=== PATIENT | female | born 1980 | race Caucasian/White ===

== ENCOUNTER 2016-09-08 02:57 | Emergency (ER) | payer SELFPAY ==
[~2016-09-08 02:57] MED LIST: Z.0.BCPILL PO
[2016-09-08 03:01] VITALS: BP 97/66; PULSE 81; RESP 16; TEMP 97.8; O2SAT 100
[2016-09-08 03:15] VITALS: BP 88/53; PULSE 73; RESP 16; O2SAT 99
[2016-09-08] MEDS ORDERED: SODIUM CHLOR 0.9% 1000 ML INJ 1,000 ML IV SCH (03:35)
[2016-09-08] MEDS ORDERED: FAMOTIDINE 20 MG/2 ML VIAL IV PUSH ONE (03:45)
[2016-09-08] MEDS ORDERED: ONDANSETRON HCL 4 MG/2 ML VIAL IVP ONE (03:45)
[2016-09-08] MEDS ORDERED: SODIUM CHLORIDE 0.9% FLUSH 5 ML FLUSH IVF PRN (03:45)
[2016-09-08] MEDS ORDERED: SODIUM CHLOR 0.9% 1000 ML INJ 1,000 ML IV ONE (03:45)
--- NOTE | 2016-09-08 03:49 | PD ---
HPI Chief Complaint: Abdominal Pain Time Seen by Provider: 03:29 Travel History International Travel<30 days: No Contact w/Intl Traveler<30days: No Traveled to known affect area: No History of Present Illness HPI Patient is a 36-year-old female who presents to emergency room with complaints of abdominal pain. She reports that she has been having intermittent left lower abdominal pain for the past few weeks. Patient reports that when she has had these symptoms, symptoms last for 20 minutes at a time and resolves on its own. Reports that tonight, her symptoms woke her up from sleep. Patient reports that she woke up and felt nauseous and vomited. Patient reports that this happened multiple times tonight. Denies constipation or diarrhea with symptoms. She reports that she has had increased pain to her left lower quadrant, reports that the last time this happened, she was told that she had fluid around her gallbladder. Patient with no pain to her right upper quadrant. Patient reports that she still feels nauseous while in the emergency room. Patient denies dysuria, urinary urgency or frequency. Patient denies vaginal discharge or bleeding. Patient with no history of ovarian cysts PFSH Past Medical History Medical History: Denies Significant Hx Hx Anticoagulant Therapy: No Cardiovascular Problems: No Chemotherapy: No Cerebrovascular Accident: No Diabetes: No Respiratory: No Tetanus Vaccination: < 5 Years Influenza Vaccination: Yes ?: Not LMP: 08/25/16 : 2 Para: 1 Miscarriage: 1 : 0 Past Surgical History Surgical History: No Previous Surgery Hysterectomy: No Family History Family History: Negative Social History Alcohol Use: Yes (OCCASIONALLY) Tobacco Use: No Substance Use: No Allergies-Medications (Allergen,Severity, Reaction): Coded Allergies: No Known Allergies (Unverified , 04/03/15) Reported Meds & Prescriptions Reported Meds & Active Scripts Active Zofran Odt (Ondansetron Odt) 4 Mg Tab 4 Mg SL Q6HR PRN Review of Systems Gastrointestinal: Positive: Nausea, Vomiting, Abdominal Pain Physical Exam Narrative GENERAL: No acute distress, nontoxic SKIN: Warm and dry. HEAD: Atraumatic. Normocephalic. EYES: Pupils equal and round. No scleral icterus. No injection or drainage. ENT: No nasal bleeding or discharge. Mucous membranes pink and moist. NECK: Trachea midline. No JVD. CARDIOVASCULAR: Regular rate and rhythm. No murmur appreciated. RESPIRATORY: No accessory muscle use. Clear to auscultation. Breath sounds equal bilaterally. GASTROINTESTINAL: Abdomen soft, mildly tender to left lower quadrant with no rebound or guarding on exam MUSCULOSKELETAL: No obvious deformities. No clubbing. No cyanosis. No edema. NEUROLOGICAL: Awake and alert. No obvious cranial nerve deficits. Motor grossly within normal limits. Normal speech. PSYCHIATRIC: Appropriate mood and affect; insight and judgment normal. Data Data Last Documented VS Vital Signs Date Time Temp Pulse Resp B/P Pulse Ox O2 Delivery O2 Flow Rate FiO2 09/08/16 03:15 16 09/08/16 03:15 73 88/53 99 Room Air 09/08/16 03:01 97.8 Orders Complete Blood Count With Diff (09/08/16 03:35) Comprehensive Metabolic Panel (09/08/16 03:35) Urinalysis - C+S If Indicated (09/08/16 03:35) Ct Abd/Pel W/O Iv Contrast (09/08/16 03:35) Iv Access Insert/Monitor (09/08/16 03:35) Ondansetron Inj (Zofran Inj) (09/08/16 03:45) Sodium Chlor 0.9% 1000 Ml Inj (Ns 1000 M (09/08/16 03:35) Sodium Chloride 0.9% Flush (Ns Flush) (09/08/16 03:45) Famotidine Inj (Pepcid Inj) (09/08/16 03:45) Ed Urine Pregnancytest Poc (09/08/16 03:35) Sodium Chlor 0.9% 1000 Ml Inj (Ns 1000 M (09/08/16 03:45) Us Pelvis Comp Ice Seller/Non-Preg (09/08/16 ) Fentanyl Inj (Fentanyl Inj) (09/08/16 04:30) Fentanyl Inj (Fentanyl Inj) (09/08/16 04:28) Labs Laboratory Tests Test 09/08/16 09/08/16 03:40 03:50 White Blood Count 12.7 TH/MM3 Red Blood Count 4.26 MIL/MM3 Hemoglobin 12.1 GM/DL Hematocrit 36.2 % Mean Corpuscular Volume 84.9 FL Mean Corpuscular Hemoglobin 28.3 PG Mean Corpuscular Hemoglobin 33.4 % Concent Red Cell Distribution Width 14.0 % Platelet Count 246 TH/MM3 Mean Platelet Volume 9.6 FL Neutrophils (%) (Auto) 83.7 % Lymphocytes (%) (Auto) 8.8 % Monocytes (%) (Auto) 5.1 % Eosinophils (%) (Auto) 2.1 % Basophils (%) (Auto) 0.3 % Neutrophils # (Auto) 10.6 TH/MM3 Lymphocytes # (Auto) 1.1 TH/MM3 Monocytes # (Auto) 0.7 TH/MM3 Eosinophils # (Auto) 0.3 TH/MM3 Basophils # (Auto) 0.0 TH/MM3 CBC Comment DIFF FINAL Differential Comment Sodium Level 139 MEQ/L Potassium Level 4.1 MEQ/L Chloride Level 108 MEQ/L Carbon Dioxide Level 26.2 MEQ/L Anion Gap 5 MEQ/L Blood Urea Nitrogen 12 MG/DL Creatinine 0.76 MG/DL Estimat Glomerular Filtration 85 ML/MIN Rate Random Glucose 100 MG/DL Calcium Level 8.7 MG/DL Total Bilirubin 0.3 MG/DL Aspartate Amino Transf 11 U/L (AST/SGOT) Alanine Aminotransferase 17 U/L (ALT/SGPT) Alkaline Phosphatase 37 U/L Total Protein 7.3 GM/DL Albumin 3.6 GM/DL Urine Color YELLOW Urine Turbidity CLEAR Urine pH 6.0 Urine Specific [place] 1.030 Urine Protein TRACE mg/dL Urine Glucose (UA) NEG mg/dL Urine Ketones NEG mg/dL Urine Occult Blood TRACE Urine Nitrite NEG Urine Bilirubin NEG Urine Urobilinogen LESS THAN 2.0 MG/DL Urine Leukocyte Esterase SMALL Urine RBC 2 /hpf Urine WBC 8 /hpf Urine Squamous Epithelial 2 /hpf Cells Urine Mucus FEW /lpf Microscopic Urinalysis Comment CULT NOT INDICATED MDM Medical Decision Making Medical Screen Exam Complete: Yes Emergency Medical Condition: Yes Interpretation(s) Vital Signs Date Time Temp Pulse Resp B/P Pulse Ox O2 Delivery O2 Flow Rate FiO2 09/08/16 03:15 16 09/08/16 03:15 73 16 88/53 99 Room Air 09/08/16 03:01 97.8 81 16 97/66 100 Room Air Differential Diagnosis Gastroenteritis, gastritis, colitis, acute cholecystitis, ovarian cyst, ovarian torsion, cervicitis Narrative Course Patient is a 36-year-old female who presents to emergency room with complaints of left lower quadrant abdominal pain. Patient reports that pain has been intermittent for the past 3 weeks, reports severe pain tonight. Patient reports that she has woken up multiple times night with nausea and vomiting, reports that she can't go to sleep with this pain. IV line established the ER, patient given IV fluids as well as antiemetics. She his blood pressure is labile, blood pressure is 80/53, will give patient IV fluids and reevaluate patient. Patient with left lower quadrant pain, CT of abdomen and pelvis ordered as well as pelvic ultrasound to evaluate for possible ovarian torsion versus ovarian cyst Patient agreeable to plan of care. Last Impressions Abdomen/Pelvis CT 09/08/16 0335 Signed Impressions: Service Date/Time: Thursday, September 08, 2016 03:51 - CONCLUSION: 1. Cholelithiasis. 2. No acute inflammatory process. Gregory Rea MD Diagnosis Primary Impression: Abdominal pain Qualified Code: R10.32 - Left lower quadrant pain Additional Impressions: Nausea & vomiting Qualified Code: R11.2 - Nausea and vomiting, intractability of vomiting not specified, unspecified vomiting type Cholelithiasis Qualified Code: K80.80 - Biliary calculus of other site without obstruction Patient Instructions: General Instructions, Narcotic given in the ED Additional Instructions: *Please provide patient with her lab work as well as her ultrasound and CAT scan report at discharge.* Please follow-up with your primary care doctor Please follow-up with felt hat pouncing operator hand Return to ER as needed Please return to the emergency room as soon as possible if you have any return of symptoms. Please drink plenty of fluids Med/Other Pt SpecificInfo: Prescription(s) given Scripts Ondansetron Odt (Zofran Odt)4 Mg Tab4 Mg SL Q6HR PRN (Nausea/Vomiting) #30 TAB Ref 0 Prov:Stephanie South DO 09/08/16 Disposition: 01 DISCHARGE HOME Condition: Stable Stephanie South DO Sep 08, 2016 03:49 Stephanie South DO Sep 08, 2016 03:49
[2016-09-08 04:02] LABS: AUTOMATED NEUTROPHIL # 10.6 TH/MM3 (1.8-7.7); BASOPHIL % 0.3 % (0.0-2.0); EOSINOPHIL # 0.3 TH/MM3 (0-0.4); EOSINOPHIL % 2.1 % (0.0-4.0); HEMATOCRIT 36.2 % (35.0-46.0); HEMO FLAGS DIFF FINAL; LYMPH % 8.8 % (9.0-44.0); LYMPHOCYTE # 1.1 TH/MM3 (1.0-4.8); MEAN CELL VOLUME 84.9 FL (80.0-100.0); MEAN CORPUSCULAR HEMOGLOBIN 28.3 PG (27.0-34.0); MEAN CORPUSCULAR HGB CONC 33.4 % (32.0-36.0); MONO % 5.1 % (0.0-8.0); NEUT % 83.7 % (16.0-70.0); PLATELET COUNT 246 TH/MM3 (150-450); RED BLOOD COUNT 4.26 MIL/MM3 (4.00-5.30); WHITE BLOOD COUNT 12.7 TH/MM3 (4.0-11.0)
[2016-09-08 04:05] LABS: BLOOD, URINE TRACE (NEG); COMMENT (UR) CULT NOT INDICATED; CULTURE IF INDICATED CULT NOT INDICATED; GLUCOSE,URINE NEG (NEG); KETONE, URINE NEG (NEG); MUCUS URINE FEW /lpf (OCC); NITRITE,URINE NEG (NEG); SQUAMOUS EPITHELIAL CELL URINE 2 /hpf (0-5); URINE COLOR YELLOW (YELLW/STRAW)
[2016-09-08 04:24] LABS: ALT (GPT) 17 U/L (10-53); ANION GAP 5 MEQ/L (5-15); AST (GOT) 11 U/L (15-37); BICARBONATE 26.2 MEQ/L (21.0-32.0); BLOOD UREA NITROGEN 12 MG/DL (7-18); CHLORIDE 108 MEQ/L (98-107); GLOMERULAR FILTRATION RATE 85 ML/MIN (>89); POTASSIUM 4.1 MEQ/L (3.5-5.1); SODIUM (NA) 139 MEQ/L (136-145)
[2016-09-08 04:27] LABS: ALKALINE PHOSPHATASE 37 U/L (45-117); TOTAL BILIRUBIN ADULT 0.3 MG/DL (0.2-1.0)
[2016-09-08] MEDS ORDERED: fentaNYL CITRATE 250 MCG/5 ML AMP IV PUSH ONE (04:30)
--- NOTE | 2016-09-08 04:44 | RADRPT ---
EXAM DATE/TIME: 09/08/2016 03:51 [facility] COMPARISON: CT ABDOMEN & PELVIS W CONTRAST, April 03, 2015, 10:30. INDICATIONS : Left lower quadrant pain. ORAL CONTRAST: No oral contrast ingested. RADIATION DOSE: 13.28 CTDIvol (mGy) MEDICAL HISTORY : None SURGICAL HISTORY : None. ENCOUNTER: Initial ACUITY: 1 day PAIN SCALE: 8/10 LOCATION: Bilateral abdomen. TECHNIQUE: Volumetric scanning of the abdomen and pelvis was performed. Using automated exposure control and ad justment of the mA and/or kV according to patient size, radiation dose was kept as low as reasonably achievable to obtain optimal diagnostic quality images. FINDINGS: LOWER LUNGS: The visualized lower lungs are clear. LIVER: Homogeneous density without lesion. There is no dilation of the biliary tree. There are calcified ga llstones. SPLEEN: Normal size without lesion. PANCREAS: Within normal limits. KIDNEYS: Normal in size and shape. There is no mass, stone, or hydronephrosis. ADRENAL GLANDS: Within normal limits. VASCULAR: There is no aortic aneurysm. BOWEL/MESENTERY: The stomach, small bowel, and colon demonstrate no acute abnormality. There is no free intraperitone al air or fluid. ABDOMINAL WALL: Within normal limits. RETROPERITONEUM: There is no lymphadenopathy. BLADDER: No wall thickening or mass. REPRODUCTIVE: Within normal limits. INGUINAL: There is no lymphadenopathy or hernia. MUSCULOSKELETAL: Within normal limits for patient age. CONCLUSION: 1. Cholelithiasis. 2. No acute inflammatory process. Gregory Rea MD on September 08, 2016 at 4:40 Board Certified Radiologist. This report was verified electronically.
[2016-09-08 06:00] VITALS: BP 98/57; PULSE 82; RESP 16; O2SAT 100
--- NOTE | 2016-09-08 06:02 | RADRPT ---
EXAM DATE/TIME: 09/08/2016 05:38 [facility] COMPARISON: No previous studies available for comparison. INDICATIONS : Left pelvic pain. MEDICAL HISTORY : Left pelvic pain. SURGICAL HISTORY : None. ENCOUNTER: Initial ACUITY: 1 day PAIN SCORE: 6/10 LOCATION: Bilateral pelvis MEASUREMENTS: UTERUS: 11.1 x 4.5 x 6.6 cm ENDOMETRIAL STRIPE: 3 mm RIGHT OVARY: 4.6 x 2.4 x 2.0 cm LEFT OVARY: 3.3 x 1.7 x 2.3 cm FINDINGS: UTERUS: The myometrium has homogeneous echotexture without mass. RIGHT OVARY: Ovary contains no mass or significant cystic lesion. Normal flow. LEFT OVARY: Ovary contains no mass or significant cystic lesion. Dominant follicle measures 9 x 10 x 9 mm. Marcelina l flow. MISCELLANEOUS: No free fluid. CONCLUSION: Dominant follicle left ovary measures 1 cm otherwise unremarkable pelvic sonogram. Gregory Rea MD on September 08, 2016 at 6:00 Board Certified Radiologist. This report was verified electronically.
[2016-09-08] MEDS ORDERED: ZOFR4TAB3 SL (06:10)
[2016-09-08] MEDS ORDERED: ONDANSETRON ODT 4 MG TAB PO ONE (07:00)
[2016-09-08] MEDS ORDERED: MECL-62 PO ×2 (21:06→21:08)
== END 2016-09-08 07:01 | disposition home or self-care (01) ==
LOC: NEPC 02:57
DX: K80.20 Calculus of gallbladder without cholecystitis without obstruction (principal); R11.2 Nausea with vomiting, unspecified
CPT/HCPCS: 74176; 76856; 80053; 81001; 84703; 85025; 96361; 96374; 96375; 99284; J2405; J3010; J7030

== ENCOUNTER 2016-09-08 19:13 | Emergency (ER) | payer SELFPAY ==
[~2016-09-08] VITALS: Ht 157.5 cm; Wt 51.0 kg
[~2016-09-08 19:13] MED LIST changes: +ZOFR4TAB3 SL
[2016-09-08 19:15] VITALS: BP 98/59; PULSE 88; RESP 20; TEMP 98.2; O2SAT 100
[2016-09-08] MEDS ORDERED: SODIUM CHLOR 0.9% 1000 ML INJ 1,000 ML IV SCH (20:28)
[2016-09-08] MEDS ORDERED: DIAZEPAM 5 MG TAB PO ONE (20:30)
[2016-09-08] MEDS ORDERED: MECLIZINE HCL 25 MG TAB PO ONE (20:30)
--- NOTE | 2016-09-08 20:37 | PD ---
HPI Chief Complaint: Abdominal Pain Time Seen by Provider: 20:36 Travel History International Travel<30 days: No Contact w/Intl Traveler<30days: No Traveled to known affect area: No History of Present Illness HPI 36-year-old female presents to the emergency department for evaluation of dizziness, weakness and vomiting. Patient states last night she began to have left sided abdominal cramping and nonbloody nonbilious vomiting, states after 3 hours of these symptoms she came to our ED for evaluation. States she had lab work, CT and ultrasound imaging done last night and was discharged with a prescription for Zofran. States when she got home early this morning from our ED she went to sleep for several hours and woke up around noon. She did not get her Zofran prescription filled. States she went "out to lunch" with her boyfriend and drank a bloody jarred but did not eat any food. States she went back to sleep and woke up this evening with dizziness, weakness and vomiting and diarrhea. States she has dizziness and vomiting that is aggravated with changing from a laying to sitting/standing position. Patient denies any fever, chills, chest pain, abdominal pain, cough or cold symptoms, dysuria, vaginal discharge. Denies . No prior abdominal surgeries. No other complaints. PFSH Past Medical History Medical History: Denies Significant Hx Hx Anticoagulant Therapy: No Cardiovascular Problems: No Chemotherapy: No Cerebrovascular Accident: No Diabetes: No Respiratory: No ?: Not : 2 Para: 1 Miscarriage: 1 : 0 Past Surgical History Surgical History: No Previous Surgery Hysterectomy: No Social History Alcohol Use: Yes (OCCASIONALLY) Tobacco Use: No Substance Use: No Allergies-Medications (Allergen,Severity, Reaction): Coded Allergies: No Known Allergies (Unverified , 09/08/16) Reported Meds & Prescriptions Reported Meds & Active Scripts Active Zofran Odt (Ondansetron Odt) 4 Mg Tab 4 Mg SL Q6HR PRN Review of Systems Except as stated in HPI: all other systems reviewed are Neg Physical Exam Narrative GENERAL: Well-nourished and well-developed female patient in no acute distress. SKIN: Warm and dry. HEAD: Normocephalic and atraumatic. EYES: No injection, drainage, or hyphema noted. PERRLA. EOMI. ENT: No nasal drainage noted. Oropharynx is clear. NECK: Supple and the trachea is midline. CARDIOVASCULAR: Regular rate and rhythm. RESPIRATORY: Breath sounds are equal bilaterally with no accessory muscle use, wheezing, rhonchi, or crackles. GASTROINTESTINAL: Abdomen is soft, non-tender, and nondistended. MUSCULOSKELETAL: No obvious deformities, swelling, cyanosis, or ecchymosis is present throughout the upper and lower extremities. Patient has full range of motion without any signs of neurovascular compromise. NEUROLOGICAL: Awake, alert, and oriented. Normal speech and gait. Cranial nerves are grossly intact. Data Data Last Documented VS Vital Signs Date Time Temp Pulse Resp B/P Pulse Ox O2 Delivery O2 Flow Rate FiO2 09/08/16 19:15 98.2 88 20 98/59 100 Room Air Orders Sodium Chlor 0.9% 1000 Ml Inj (Ns 1000 M (09/08/16 20:28) Diazepam (Valium) (09/08/16 20:30) Meclizine (Antivert) (09/08/16 20:30) MDM Medical Decision Making Medical Screen Exam Complete: Yes Emergency Medical Condition: Yes Differential Diagnosis Vertigo versus dehydration versus anxiety versus viral illness Narrative Course 36-year-old female presents to the emergency department for evaluation of weakness, dizziness and vomiting. Patient is afebrile, vital signs are stable. Physical examination is essentially unremarkable except patient complains of dizziness with sitting up. No focal neurologic deficits. A review of the EMR shows that the patient had lab work, abdominal/pelvic CT and a pelvic ultrasound last night. Her labs showed only a minimally elevated WBC of 12.7. Otherwise everything was unremarkable. I suspect that the patient has a viral illness causing her vomiting and diarrhea and is having some dizziness/ lightheadedness secondary to either vertigo or mild dehydration. Also, having an alcoholic beverage on an empty stomach likely worsened her symptoms. Given that she had lab work less than 24 hours ago I don't see an indication to repeat labs. Patient is given a liter of fluids IV, meclizine 25 mg orally and valium 5 mg orally. She'll be reassessed after these medications. Patient reassessed after fluids and medication and reports feeling much better. We'll give her prescription for meclizine. She has the prescription for Zofran at home. Discussed supportive care. Advised follow-up with her PCP. Patient verbalizes understanding and agreement with treatment plan. Diagnosis Primary Impression: Dizziness Additional Impression: Nausea & vomiting Qualified Code: R11.2 - Non-intractable vomiting with nausea, unspecified vomiting type Referrals: Primary Care Physician Patient Instructions: General Instructions Additional Instructions: Drink plenty of water. Eat bland foods. Follow-up with your Primary Care Physician. Return to the ED for any acute worsening of symptoms. Med/Other Pt SpecificInfo: No Change to Meds Scripts Meclizine 25 Mg Tab25 Mg PO TID PRN (VERTIGO) 5 Days Ref 0 Prov:Mark Melara MD 09/08/16 Disposition: 01 DISCHARGE HOME Condition: Stable Kira Barroso Sep 08, 2016 20:37
[2016-09-08] MEDS ORDERED: MECL-62 PO ×2 (21:06→21:08)
== END 2016-09-08 21:37 | disposition home or self-care (01) ==
LOC: NETRI 19:13
DX: R42 Dizziness and giddiness (principal); R11.2 Nausea with vomiting, unspecified
CPT/HCPCS: 99284; J7030

== ENCOUNTER 2017-01-23 05:18 | Emergency (ER) | payer SELFPAY ==
[~2017-01-23] VITALS: Ht 157.5 cm; Wt 51.0 kg
[~2017-01-23 05:18] MED LIST changes: +MECL-62 PO; -Z.0.BCPILL PO
[2017-01-23 05:19] VITALS: BP 100/64; PULSE 67; RESP 18; TEMP 97.8; O2SAT 100
--- NOTE | 2017-01-23 05:38 | PD ---
HPI Chief Complaint: Abdominal Pain Time Seen by Provider: 05:38 Travel History International Travel<30 days: No Contact w/Intl Traveler<30days: No Traveled to known affect area: No History of Present Illness HPI 36-year-old female came to the emergency room with history of epigastric and right upper quadrant pain sudden onset since last night. No history of vomiting or diarrhea. She is nauseous however. Patient has been diagnosed with cholelithiasis in the past. Patient says she does not have insurance and hence never went to see his surgeon as outpatient. Pain radiating from the epigastric region to RUQ. No aggravating or relieving factors. PFSH Past Medical History Narrative Medical List of her past medical, surgical, social and family history was reviewed from the nursing note. Hx Anticoagulant Therapy: No Cardiovascular Problems: No Chemotherapy: No Cerebrovascular Accident: No Diabetes: No Diminished Hearing: No Respiratory: No Immunizations Current: No Tetanus Vaccination: < 5 Years Influenza Vaccination: No ?: Not LMP: 12/31/2016 : 2 Para: 1 Miscarriage: 1 : 0 Past Surgical History Surgical History: No Previous Surgery Hysterectomy: No Social History Alcohol Use: Yes (OCCASIONALLY) Tobacco Use: No Substance Use: No Allergies-Medications (Allergen,Severity, Reaction): Coded Allergies: No Known Allergies (Unverified , 01/23/17) Comments No known drug allergies. Reported Meds & Prescriptions Reported Meds & Active Scripts Active Lortab (Hydrocodone-Acetaminophen) 5-325 Mg Tab 1 Tab PO Q6H PRN Zofran Odt (Ondansetron Odt) 4 Mg Tab 4 Mg SL Q6HR PRN Narrative Medication List of her home medications reviewed from the nursing note. Review of Systems Except as stated in HPI: all other systems reviewed are Neg Physical Exam Narrative GENERAL: Awake, alert, moderate distress SKIN: Focused skin assessment warm/dry. HEAD: Atraumatic. Normocephalic. EYES: Pupils equal and round. No scleral icterus. No injection or drainage. ENT: No nasal bleeding or discharge. Mucous membranes pink and moist. NECK: Trachea midline. No JVD. CARDIOVASCULAR: Regular rate and rhythm. No murmur appreciated. RESPIRATORY: No accessory muscle use. Clear to auscultation. Breath sounds equal bilaterally. GASTROINTESTINAL: Abdomen soft, epigastric and right upper quadrant tenderness, nondistended. Hepatic and splenic margins not palpable. MUSCULOSKELETAL: No obvious deformities. No clubbing. No cyanosis. No edema. NEUROLOGICAL: Awake and alert. No obvious cranial nerve deficits. Motor grossly within normal limits. Normal speech. PSYCHIATRIC: Appropriate mood and affect; insight and judgment normal. Data Data Last Documented VS Vital Signs Date Time Temp Pulse Resp B/P Pulse Ox O2 Delivery O2 Flow Rate FiO2 01/23/17 10:11 72 15 110/60 99 01/23/17 07:30 98.2 Room Air Orders Complete Blood Count With Diff (01/23/17 05:48) Comprehensive Metabolic Panel (01/23/17 05:48) Lipase (01/23/17 05:48) Urinalysis - C+S If Indicated (01/23/17 05:48) Us Abdomen Gallbladder (01/23/17 ) Iv Access Insert/Monitor (01/23/17 05:48) Ecg Monitoring (01/23/17 05:48) Oximetry (01/23/17 05:48) Morphine Inj (Morphine Inj) (01/23/17 06:00) Ondansetron Inj (Zofran Inj) (01/23/17 06:00) Sodium Chlor 0.9% 1000 Ml Inj (Ns 1000 M (01/23/17 05:48) Sodium Chloride 0.9% Flush (Ns Flush) (01/23/17 06:00) Ed Urine Pregnancytest Poc (01/23/17 05:48) Mandatory Outpatient Referral (01/23/17 09:50) Labs Laboratory Tests Test 01/23/17 01/23/17 06:10 07:10 White Blood Count 7.0 TH/MM3 Red Blood Count 4.31 MIL/MM3 Hemoglobin 12.1 GM/DL Hematocrit 37.1 % Mean Corpuscular Volume 86.1 FL Mean Corpuscular Hemoglobin 28.0 PG Mean Corpuscular Hemoglobin 32.6 % Concent Red Cell Distribution Width 14.5 % Platelet Count 241 TH/MM3 Mean Platelet Volume 10.1 FL Neutrophils (%) (Auto) 53.6 % Lymphocytes (%) (Auto) 31.2 % Monocytes (%) (Auto) 9.8 % Eosinophils (%) (Auto) 4.6 % Basophils (%) (Auto) 0.8 % Neutrophils # (Auto) 3.7 TH/MM3 Lymphocytes # (Auto) 2.2 TH/MM3 Monocytes # (Auto) 0.7 TH/MM3 Eosinophils # (Auto) 0.3 TH/MM3 Basophils # (Auto) 0.1 TH/MM3 CBC Comment DIFF FINAL Differential Comment Sodium Level 142 MEQ/L Potassium Level 3.9 MEQ/L Chloride Level 108 MEQ/L Carbon Dioxide Level 26.3 MEQ/L Anion Gap 8 MEQ/L Blood Urea Nitrogen 8 MG/DL Creatinine 0.69 MG/DL Estimat Glomerular Filtration 95 ML/MIN Rate Random Glucose 92 MG/DL Calcium Level 8.8 MG/DL Total Bilirubin 0.2 MG/DL Aspartate Amino Transf 13 U/L (AST/SGOT) Alanine Aminotransferase 16 U/L (ALT/SGPT) Alkaline Phosphatase 38 U/L Total Protein 7.2 GM/DL Albumin 3.6 GM/DL Lipase 213 U/L Urine Color YELLOW Urine Turbidity CLEAR Urine pH 5.5 Urine Specific [place] 1.020 Urine Protein NEG mg/dL Urine Glucose (UA) NEG mg/dL Urine Ketones NEG mg/dL Urine Occult Blood SMALL Urine Nitrite NEG Urine Bilirubin NEG Urine Urobilinogen LESS THAN 2.0 MG/DL Urine Leukocyte Esterase NEG Urine RBC 1 /hpf Urine WBC 1 /hpf Urine Squamous Epithelial 1 /hpf Cells Urine Mucus FEW /lpf Microscopic Urinalysis Comment CULT NOT INDICATED MDM Medical Decision Making Medical Screen Exam Complete: Yes Emergency Medical Condition: Yes Medical Record Reviewed: Yes Differential Diagnosis Acute cholecystitis, acute pancreatitis Narrative Course 6:54 AM given the fact that patient has had previous cholelithiasis this sounds like a biliary colic. CBC is within normal limit. Awaiting for the chemistry and ultrasound. Patient was medicated for pain in case has been signed over to the oncoming ER physician. Procedures EKG Prior to Arrival: No Scripts Hydrocodone-Acetaminophen (Lortab)5-325 Mg Tab1 Tab PO Q6H PRN (PAIN) #20 TAB Ref 0 Prov:Rg Casey MD 01/23/17 Ondansetron Odt (Zofran Odt)4 Mg Tab4 Mg SL Q6HR PRN (Nausea/Vomiting) #30 TAB Ref 0 Prov:Rg Casey MD 01/23/17 Yonis Sher MD January 23, 2017 05:38
[2017-01-23] MEDS ORDERED: SODIUM CHLOR 0.9% 1000 ML INJ 1,000 ML IV SCH (05:48)
[2017-01-23] MEDS ORDERED: ONDANSETRON HCL 4 MG/2 ML VIAL IVP ONE (06:00)
[2017-01-23] MEDS ORDERED: SODIUM CHLORIDE 0.9% FLUSH 10 ML FLUSH IV FLUSH PRN (06:00)
[2017-01-23] MEDS ORDERED: MORPHINE SULFATE 4 MG/ML INJ IV PUSH ONE (06:00)
[2017-01-23 06:02] VITALS: O2SAT 97
[2017-01-23 06:23] LABS: AUTOMATED NEUTROPHIL # 3.7 TH/MM3 (1.8-7.7); BASOPHIL # 0.1 TH/MM3 (0-0.2); BASOPHIL % 0.8 % (0.0-2.0); EOSINOPHIL # 0.3 TH/MM3 (0-0.4); EOSINOPHIL % 4.6 % (0.0-4.0); HEMATOCRIT 37.1 % (35.0-46.0); HEMO FLAGS DIFF FINAL; LYMPH % 31.2 % (9.0-44.0); LYMPHOCYTE # 2.2 TH/MM3 (1.0-4.8); MEAN CELL VOLUME 86.1 FL (80.0-100.0); MEAN CORPUSCULAR HGB CONC 32.6 % (32.0-36.0); MONO % 9.8 % (0.0-8.0); NEUT % 53.6 % (16.0-70.0); PLATELET COUNT 241 TH/MM3 (150-450); RED BLOOD COUNT 4.31 MIL/MM3 (4.00-5.30); RED CELL DISTRIBUTION WIDTH 14.5 % (11.6-17.2)
[2017-01-23 07:01] LABS: ALT (GPT) 16 U/L (10-53); ANION GAP 8 MEQ/L (5-15); AST (GOT) 13 U/L (15-37); BICARBONATE 26.3 MEQ/L (21.0-32.0); BLOOD UREA NITROGEN 8 MG/DL (7-18); CHLORIDE 108 MEQ/L (98-107); GLOMERULAR FILTRATION RATE 95 ML/MIN (>89); POTASSIUM 3.9 MEQ/L (3.5-5.1); SODIUM (NA) 142 MEQ/L (136-145)
[2017-01-23 07:03] LABS: ALKALINE PHOSPHATASE 38 U/L (45-117); TOTAL BILIRUBIN ADULT 0.2 MG/DL (0.2-1.0)
[2017-01-23 07:10] VITALS: RESP 16; O2SAT 100
--- NOTE | 2017-01-23 07:19 | PD ---
Physical Exam Date Seen by Provider: January 23, 2017 Time Seen by Provider: 07:00 Narrative Patient signed out to me by Dr. Sher. Working diagnosis is cholecystitis. The patient has had 2 previous episodes of symptomatic gallbladder disease. The patient is afebrile. White count is normal. Liver enzymes and alkaline phosphatase are normal. We are awaiting ultrasound of the gallbladder. Data Data Last Documented VS Vital Signs Date Time Temp Pulse Resp B/P Pulse Ox O2 Delivery O2 Flow Rate FiO2 01/23/17 07:30 98.2 68 16 98/67 100 Room Air Orders Complete Blood Count With Diff (01/23/17 05:48) Comprehensive Metabolic Panel (01/23/17 05:48) Lipase (01/23/17 05:48) Urinalysis - C+S If Indicated (01/23/17 05:48) Us Abdomen Gallbladder (01/23/17 ) Iv Access Insert/Monitor (01/23/17 05:48) Ecg Monitoring (01/23/17 05:48) Oximetry (01/23/17 05:48) Morphine Inj (Morphine Inj) (01/23/17 06:00) Ondansetron Inj (Zofran Inj) (01/23/17 06:00) Sodium Chlor 0.9% 1000 Ml Inj (Ns 1000 M (01/23/17 05:48) Sodium Chloride 0.9% Flush (Ns Flush) (01/23/17 06:00) Ed Urine Pregnancytest Poc (01/23/17 05:48) Labs Laboratory Tests Test 01/23/17 01/23/17 06:10 07:10 White Blood Count 7.0 TH/MM3 Red Blood Count 4.31 MIL/MM3 Hemoglobin 12.1 GM/DL Hematocrit 37.1 % Mean Corpuscular Volume 86.1 FL Mean Corpuscular Hemoglobin 28.0 PG Mean Corpuscular Hemoglobin 32.6 % Concent Red Cell Distribution Width 14.5 % Platelet Count 241 TH/MM3 Mean Platelet Volume 10.1 FL Neutrophils (%) (Auto) 53.6 % Lymphocytes (%) (Auto) 31.2 % Monocytes (%) (Auto) 9.8 % Eosinophils (%) (Auto) 4.6 % Basophils (%) (Auto) 0.8 % Neutrophils # (Auto) 3.7 TH/MM3 Lymphocytes # (Auto) 2.2 TH/MM3 Monocytes # (Auto) 0.7 TH/MM3 Eosinophils # (Auto) 0.3 TH/MM3 Basophils # (Auto) 0.1 TH/MM3 CBC Comment DIFF FINAL Differential Comment Sodium Level 142 MEQ/L Potassium Level 3.9 MEQ/L Chloride Level 108 MEQ/L Carbon Dioxide Level 26.3 MEQ/L Anion Gap 8 MEQ/L Blood Urea Nitrogen 8 MG/DL Creatinine 0.69 MG/DL Estimat Glomerular Filtration 95 ML/MIN Rate Random Glucose 92 MG/DL Calcium Level 8.8 MG/DL Total Bilirubin 0.2 MG/DL Aspartate Amino Transf 13 U/L (AST/SGOT) Alanine Aminotransferase 16 U/L (ALT/SGPT) Alkaline Phosphatase 38 U/L Total Protein 7.2 GM/DL Albumin 3.6 GM/DL Lipase 213 U/L Urine Color YELLOW Urine Turbidity CLEAR Urine pH 5.5 Urine Specific [place] 1.020 Urine Protein NEG mg/dL Urine Glucose (UA) NEG mg/dL Urine Ketones NEG mg/dL Urine Occult Blood SMALL Urine Nitrite NEG Urine Bilirubin NEG Urine Urobilinogen LESS THAN 2.0 MG/DL Urine Leukocyte Esterase NEG Urine RBC 1 /hpf Urine WBC 1 /hpf Urine Squamous Epithelial 1 /hpf Cells Urine Mucus FEW /lpf Microscopic Urinalysis Comment CULT NOT INDICATED MDM Medical Record Reviewed: Yes Supervised Visit with IVETTE: No Interpretation(s) Last Impressions Gall Bladder Ultrasound 01/23/17 0000 Signed Impressions: Service Date/Time: Monday, January 23, 2017 08:34 - CONCLUSION: 1. Numerous gallstones without biliary ductal dilatation. No free fluid. Tony Peña MD Differential Diagnosis Acute cholecystitis versus hepatitis versus hepatitis versus gallbladder disease. Narrative Course 36-year-old female with gallbladder disease and gallstones, who presents with right upper quadrant pain. Patient has no evidence of cholecystitis at this time. I informed her that I will place a mandatory consult so that she can have this scheduled to be taken out. She'll be given up her prescription for Lortab in case she has not her tach. She is instructed to return if she does any worsening pain, intractable nausea vomiting, or any other reason the concerns her. Diagnosis Primary Impression: Cholelithiasis Additional Instruction: Avoid fatty foods. He will receive a call from a nurse for a scheduled appointment with Gen. surgery. Return if you have worsening pain, intractable nausea vomiting, or any other reason its concerning. Med/Other Pt SpecificInfo: Prescription(s) given Scripts Hydrocodone-Acetaminophen (Lortab)5-325 Mg Tab1 Tab PO Q6H PRN (PAIN) #20 TAB Ref 0 Prov:Rg Casey MD 01/23/17 Ondansetron Odt (Zofran Odt)4 Mg Tab4 Mg SL Q6HR PRN (Nausea/Vomiting) #30 TAB Ref 0 Prov:Rg Casey MD 01/23/17 Disposition: 01 DISCHARGE HOME Condition: Stable Rg Casey MD January 23, 2017 07:19
[2017-01-23 07:30] VITALS: BP 98/67; PULSE 68; RESP 16; TEMP 98.2; O2SAT 100
[2017-01-23 07:43] LABS: BLOOD, URINE SMALL (NEG); COMMENT (UR) CULT NOT INDICATED; CULTURE IF INDICATED CULT NOT INDICATED; GLUCOSE,URINE NEG (NEG); KETONE, URINE NEG (NEG); MUCUS URINE FEW /lpf (OCC); NITRITE,URINE NEG (NEG); PH, URINE 5.5 (5.0-8.5); SQUAMOUS EPITHELIAL CELL URINE 1 /hpf (0-5); URINE COLOR YELLOW (YELLW/STRAW)
--- NOTE | 2017-01-23 09:41 | RADRPT ---
EXAM DATE/TIME: 01/23/2017 08:34 [facility] COMPARISON: No previous studies available for comparison. INDICATIONS : Right upper quadrant pain. MEDICAL HISTORY : Abdominal pain. SURGICAL HISTORY : None. ENCOUNTER: Initial ACUITY: 1 day PAIN SCORE: 0/10 LOCATION: Bilateral upper quadrant MEASUREMENTS: LIVER: 14.6 cm length COMMON DUCT: 5 mm RIGHT KIDNEY: 11.1 x 5.7 x 4.1 cm FINDINGS: Multiple gallstones present in the gallbladder. No biliary ductal dilatation. Gallbladder wall measur es about 3 mm at the upper edge of normal. No significant abnormality in the liver, right kidney. No free fluid. Portal venous flow has normal f low direction. Right kidney unremarkable. CONCLUSION: 1. Numerous gallstones without biliary ductal dilatation. No free fluid. Tony Peña MD on January 23, 2017 at 9:35 Board Certified Radiologist. This report was verified electronically.
[2017-01-23] MEDS ORDERED: ZOFR4TAB3 SL (09:50)
[2017-01-23] MEDS ORDERED: HYDR-3533 PO (09:50)
[2017-01-23 10:11] VITALS: BP 110/60
== END 2017-01-23 10:20 | disposition home or self-care (01) ==
LOC: NEPC 05:18
DX: K80.20 Calculus of gallbladder without cholecystitis without obstruction (principal)
CPT/HCPCS: 76705; 80053; 81001; 83690; 84703; 85025; 96361; 96374; 96375; 99285; J2270; J2405; J7030

== ENCOUNTER 2017-04-10 02:36 | Emergency (ER) | payer SELFPAY ==
[~2017-04-10 02:36] MED LIST changes: +HYDR-3533 PO; -MECL-62 PO
[2017-04-10 02:39] VITALS: BP 108/57; PULSE 64; RESP 20; TEMP 98.3; O2SAT 100
[2017-04-10] MEDS ORDERED: SODIUM CHLOR 0.9% 1000 ML INJ 1,000 ML IV SCH (03:01)
[2017-04-10] MEDS ORDERED: ONDANSETRON HCL 4 MG/2 ML VIAL IVP ONE (03:15)
[2017-04-10] MEDS ORDERED: HYDROmorphone HCL PF 1 MG/ML VIAL IVS ONE (03:15)
[2017-04-10] MEDS ORDERED: SODIUM CHLORIDE 0.9% FLUSH 10 ML FLUSH IV FLUSH PRN (03:15)
[2017-04-10 03:20] LABS: AUTOMATED NEUTROPHIL # 4.3 TH/MM3 (1.8-7.7); BASOPHIL # 0.1 TH/MM3 (0-0.2); BASOPHIL % 0.8 % (0.0-2.0); EOSINOPHIL # 0.4 TH/MM3 (0-0.4); EOSINOPHIL % 4.9 % (0.0-4.0); HEMATOCRIT 34.7 % (35.0-46.0); HEMO FLAGS DIFF FINAL; LYMPH % 38.3 % (9.0-44.0); LYMPHOCYTE # 3.5 TH/MM3 (1.0-4.8); MEAN CELL VOLUME 86.9 FL (80.0-100.0); MEAN CORPUSCULAR HEMOGLOBIN 29.6 PG (27.0-34.0); MEAN CORPUSCULAR HGB CONC 34.1 % (32.0-36.0); MONO % 8.8 % (0.0-8.0); NEUT % 47.2 % (16.0-70.0); PLATELET COUNT 265 TH/MM3 (150-450); RED BLOOD COUNT 3.99 MIL/MM3 (4.00-5.30); RED CELL DISTRIBUTION WIDTH 13.9 % (11.6-17.2); WHITE BLOOD COUNT 9.1 TH/MM3 (4.0-11.0)
[2017-04-10 03:27] LABS: APTT (PATIENT) 23.7 SEC (24.3-30.1); INTERNATIONAL NORMALIZED RATIO 0.9 RATIO; PROTHROMBIN TIME - PATIENT 10.2 SEC (9.8-11.6)
[2017-04-10 03:40] LABS: BICARBONATE 24.5 MEQ/L (21.0-32.0); POTASSIUM 3.7 MEQ/L (3.5-5.1)
--- NOTE | 2017-04-10 03:51 | RADRPT ---
EXAM DATE/TIME: 04/10/2017 03:18 [facility] COMPARISON: US ABDOMEN - GALLBLADDER, January 23, 2017, 8:34. CT ABDOMEN & PELVIS W/O CONTRAST, September 08, 2016, 3: 51. INDICATIONS : Right upper quadrant pain. MEDICAL HISTORY : Gallstones. SURGICAL HISTORY : None. ENCOUNTER: Subsequent ACUITY: 3 months PAIN SCORE: 3/10 LOCATION: Right upper quadrant MEASUREMENTS: LIVER: 18.5 cm length COMMON DUCT: 5 mm RIGHT KIDNEY: 10.8 x 3.9 x 4.0 cm FINDINGS: LIVER: Normal echotexture without focal lesion or ductal dilatation. There is normal flow velocity and direc tion in the main portal vein. COMMON DUCT: No intraluminal mass or stone visualized. GALLBLADDER: Small sludge seen in the gallbladder. There is a mobile 8 x 15 mm stone. There is an 11 mm non-mobile stone at the neck findings appear similar to the main comparison. No gallbladder wall thickening or pericholecystic fluid. Negative sonographic Edmonds's sign. PANCREAS: The visualized portions are within normal limits. RIGHT KIDNEY: No evidence of hydronephrosis, stone, or mass. CONCLUSION: 1. Liver is mildly enlarged, new. 2. Sludge and stones in the gallbladder. Non-mobile stone at the gallbladder neck but no evidence of cholecystitis. Angelito Szymanski MD on April 10, 2017 at 3:45 Board Certified Radiologist. This report was verified electronically.
[2017-04-10 03:56] LABS: INDIRECT BILIRUBIN 0.2 MG/DL (0.0-0.8); TOTAL BILIRUBIN ADULT 0.3 MG/DL (0.2-1.0)
[2017-04-10] MEDS ORDERED: ZOFR4TAB3 SL (05:14)
--- NOTE | 2017-04-10 05:14 | PD ---
HPI Chief Complaint: Abdominal Pain Time Seen by Provider: 03:01 Travel History International Travel<30 days: No Contact w/Intl Traveler<30days: No Traveled to known affect area: No History of Present Illness HPI Patient is a 37 year old female who comes in complaining of abdominal pain. She has history of gallstones and says this is the same pain. She says the pain is right above her umbilicus. She has tried taking Tylenol and Hydrocodone at home for the pain, but it is not helping tonight. She says she has had nausea and vomiting. She denies fever or chills. PFSH Past Medical History Hx Anticoagulant Therapy: No Cardiovascular Problems: No Chemotherapy: No Cerebrovascular Accident: No Diabetes: No Diminished Hearing: No Respiratory: No Immunizations Current: No : 2 Para: 1 Miscarriage: 1 : 0 Past Surgical History Hysterectomy: No Social History Alcohol Use: Yes (OCCASIONALLY) Tobacco Use: No Substance Use: No Allergies-Medications (Allergen,Severity, Reaction): Coded Allergies: No Known Allergies (Unverified , 01/23/17) Reported Meds & Prescriptions Reported Meds & Active Scripts Active Zofran Odt (Ondansetron Odt) 4 Mg Tab 4 Mg SL Q6HR PRN Lortab (Hydrocodone-Acetaminophen) 5-325 Mg Tab 1 Tab PO Q6H PRN Zofran Odt (Ondansetron Odt) 4 Mg Tab 4 Mg SL Q6HR PRN Review of Systems Except as stated in HPI: all other systems reviewed are Neg General / Constitutional: No: Fever, Chills HENT: No: Headaches, Lightheadedness Cardiovascular: No: Chest Pain or Discomfort Respiratory: No: Shortness of Breath Gastrointestinal: Positive: Nausea, Vomiting, Abdominal Pain Genitourinary: No: Dysuria Skin: No Rash, No Change in Pigmentation Neurologic: No: Weakness, Dizziness Physical Exam Narrative GENERAL: Awake and alert, in mild distress due to pain. SKIN: Focused skin assessment warm/dry. HEAD: Atraumatic. Normocephalic. EYES: Pupils equal and round. No scleral icterus. ENT: Mucous membranes pink and moist. NECK: Trachea midline. No JVD. CARDIOVASCULAR: Regular rate and rhythm. No murmur appreciated. RESPIRATORY: No accessory muscle use. Clear to auscultation. Breath sounds equal bilaterally. GASTROINTESTINAL: Abdomen soft, nondistended. Tender to palpation of the epigastric area and RUQ. Voluntary guarding, no rebound. MUSCULOSKELETAL: No obvious deformities. No clubbing. No cyanosis. No edema. NEUROLOGICAL: Awake and alert. No obvious cranial nerve deficits. Motor grossly within normal limits. Normal speech. PSYCHIATRIC: Appropriate mood and affect; insight and judgment normal. Data Data Last Documented VS Vital Signs Date Time Temp Pulse Resp B/P Pulse Ox O2 Delivery O2 Flow Rate FiO2 04/10/17 02:39 98.3 64 20 108/57 100 Room Air Orders Basic Metabolic Panel (Bmp) (04/10/17 03:01) Complete Blood Count With Diff (04/10/17 03:01) Lipase (04/10/17 03:01) Prothrombin Time / Inr (Pt) (04/10/17 03:01) Act Partial Throm Time (Ptt) (04/10/17 03:01) Urinalysis - C+S If Indicated (04/10/17 03:01) Ua Includes Microscopic (04/10/17 03:01) Us Abdomen Gallbladder (04/10/17 ) Iv Access Insert/Monitor (04/10/17 03:01) Ecg Monitoring (04/10/17 03:01) Oximetry (04/10/17 03:01) Ondansetron Inj (Zofran Inj) (04/10/17 03:15) Sodium Chlor 0.9% 1000 Ml Inj (Ns 1000 M (04/10/17 03:01) Sodium Chloride 0.9% Flush (Ns Flush) (04/10/17 03:15) Hydromorphone Pf Inj (Dilaudid Pf Inj) (04/10/17 03:15) Ed Urine Pregnancytest Poc (04/10/17 03:01) Hepatic Functional Panel (04/10/17 03:01) Mandatory Outpatient Referral (04/10/17 05:14) Labs Laboratory Tests Test 04/10/17 03:10 White Blood Count 9.1 TH/MM3 Red Blood Count 3.99 MIL/MM3 Hemoglobin 11.8 GM/DL Hematocrit 34.7 % Mean Corpuscular Volume 86.9 FL Mean Corpuscular Hemoglobin 29.6 PG Mean Corpuscular Hemoglobin 34.1 % Concent Red Cell Distribution Width 13.9 % Platelet Count 265 TH/MM3 Mean Platelet Volume 9.2 FL Neutrophils (%) (Auto) 47.2 % Lymphocytes (%) (Auto) 38.3 % Monocytes (%) (Auto) 8.8 % Eosinophils (%) (Auto) 4.9 % Basophils (%) (Auto) 0.8 % Neutrophils # (Auto) 4.3 TH/MM3 Lymphocytes # (Auto) 3.5 TH/MM3 Monocytes # (Auto) 0.8 TH/MM3 Eosinophils # (Auto) 0.4 TH/MM3 Basophils # (Auto) 0.1 TH/MM3 CBC Comment DIFF FINAL Differential Comment Prothrombin Time 10.2 SEC Prothromb Time International 0.9 RATIO Ratio Activated Partial 23.7 SEC Thromboplast Time Sodium Level 140 MEQ/L Potassium Level 3.7 MEQ/L Chloride Level 105 MEQ/L Carbon Dioxide Level 24.5 MEQ/L Anion Gap 11 MEQ/L Blood Urea Nitrogen 11 MG/DL Creatinine 0.85 MG/DL Estimat Glomerular Filtration 74 ML/MIN Rate Random Glucose 110 MG/DL Calcium Level 9.0 MG/DL Total Bilirubin 0.3 MG/DL Direct Bilirubin 0.1 MG/DL Indirect Bilirubin 0.2 MG/DL Aspartate Amino Transf 12 U/L (AST/SGOT) Alanine Aminotransferase 15 U/L (ALT/SGPT) Alkaline Phosphatase 33 U/L Total Protein 7.2 GM/DL Albumin 3.6 GM/DL Lipase 188 U/L MDM Medical Decision Making Medical Screen Exam Complete: Yes Emergency Medical Condition: Yes Medical Record Reviewed: Yes Differential Diagnosis Cholecystitis versus cholelithiasis versus pancreatitis Narrative Course Patient is a 37-year-old female comes in complaining of abdominal pain. Exam shows epigastric and right upper quadrant tenderness. IV established, labs sent. Labs show no acute abnormalities. Ultrasound of the right upper quadrant shows gallstones, no evidence of cholecystitis. Last 24 hours Impressions Gall Bladder Ultrasound 04/10/17 0000 Signed Impressions: Service Date/Time: Monday, April 10, 2017 03:18 - CONCLUSION: 1. Liver is mildly enlarged, new. 2. Sludge and stones in the gallbladder. Non-mobile stone at the gallbladder neck but no evidence of cholecystitis. Angelito Szymanski MD Patient given IV fluids, Dilaudid, Zofran. She reports feeling better. She has pain medication at home. She'll be discharged with a prescription for Zofran. She is told she needs to follow-up with general surgery to have her gallbladder taken out. Advised to return to the ED as needed for any worsening symptoms. Mandatory outpatient referral placed. Diagnosis Primary Impression: Cholelithiasis Qualified Code: K80.70 - Calculus of gallbladder and bile duct without cholecystitis or obstruction Patient Instructions: Gallstones (ED), General Instructions Additional Instructions: Follow-up with general surgery. Take pain medication as needed. Drink plenty of fluids. Avoid fatty foods. Return to the ED as needed for any worsening symptoms. Scripts Hydrocodone-Acetaminophen (Lortab)5-325 Mg Tab1 Tab PO Q6H PRN (PAIN) #15 TAB Ref 0 Prov:Vanessa Santiago MD 04/10/17 Ondansetron Odt (Zofran Odt)4 Mg Tab4 Mg SL Q6HR PRN (Nausea/Vomiting) #20 TAB Ref 0 Prov:Vanessa Santiago MD 04/10/17 Disposition: 01 DISCHARGE HOME Condition: Stable Vanessa Santiago MD Apr 10, 2017 05:14
[2017-04-10] MEDS ORDERED: HYDR-3533 PO (05:26)
== END 2017-04-10 05:34 | disposition home or self-care (01) ==
LOC: NEPE 02:36
DX: K80.20 Calculus of gallbladder without cholecystitis without obstruction (principal); R16.0 Hepatomegaly, not elsewhere classified; R11.2 Nausea with vomiting, unspecified
CPT/HCPCS: 76705; 80048; 80076; 83690; 84703; 85025; 85610; 85730; 96361; 96374; 96375; 99285; J1170; J2405; J7030

== ENCOUNTER 2017-11-17 03:37 | Emergency (ER) | payer SELFPAY ==
[2017-11-17 04:22] VITALS: BP 124/72; PULSE 78; RESP 18; TEMP 97.6; O2SAT 100
[2017-11-17] MEDS ORDERED: ORTHTAB4 PO (04:30)
== END 2017-11-17 07:30 | disposition left against medical advice (07) ==
LOC: NED 03:37
DX: R10.9 Unspecified abdominal pain (principal)
CPT/HCPCS: 99281

== ENCOUNTER 2018-02-01 22:05 | Emergency (ER) | payer SELFPAY ==
[~2018-02-01 22:05] MED LIST changes: -HYDR-3533 PO; +ORTHTAB4 PO; -ZOFR4TAB3 SL
[2018-02-02] MEDS ORDERED: CEPH-460 PO (00:55)
== END 2018-02-01 23:12 | disposition left against medical advice (07) ==
LOC: NED 22:05
DX: R10.9 Unspecified abdominal pain (principal)
CPT/HCPCS: 99281

== ENCOUNTER 2018-02-01 22:56 | Emergency (ER) | payer OTHER ==
[~2018-02-01] VITALS: Ht 157.5 cm; Wt 57.5 kg
[2018-02-01 22:59] VITALS: BP 138/59; PULSE 75; RESP 18; TEMP 98.3; O2SAT 99
[2018-02-01] MEDS ORDERED: SODIUM CHLOR 0.9% 1000 ML INJ 1,000 ML IV ONE (23:15)
[2018-02-01] MEDS ORDERED: MORPHINE SULFATE 2 MG/ML SYRINGE IV PUSH ONE (23:15)
[2018-02-01 23:40] LABS: BILIRUBIN, URINE NEG (NEG); BLOOD, URINE NEG (NEG); GLUCOSE,URINE NEG (NEG); KETONE, URINE NEG (NEG); NITRITE,URINE NEG (NEG); URINE COLOR YELLOW (YELLW/STRAW); URINE LEUKOCYTE ESTERASE MOD (NEG)
[2018-02-01 23:42] LABS: AUTOMATED NEUTROPHIL # 2.7 TH/MM3 (1.8-7.7); BASOPHIL # 0.1 TH/MM3 (0-0.2); EOSINOPHIL # 0.4 TH/MM3 (0-0.4); EOSINOPHIL % 5.7 % (0.0-4.0); HEMATOCRIT 30.3 % (35.0-46.0); HEMOGLOBIN 9.6 GM/DL (11.6-15.3); LYMPH % 40.9 % (9.0-44.0); LYMPHOCYTE # 2.6 TH/MM3 (1.0-4.8); MEAN CELL VOLUME 83.2 FL (80.0-100.0); MEAN CORPUSCULAR HEMOGLOBIN 26.4 PG (27.0-34.0); MEAN CORPUSCULAR HGB CONC 31.7 % (32.0-36.0); MEAN PLATELET VOLUME 8.9 FL (7.0-11.0); MONO % 11.7 % (0.0-8.0); MONOCYTE # 0.8 TH/MM3 (0-0.9); NEUT % 40.7 % (16.0-70.0); PLATELET COUNT 227 TH/MM3 (150-450); RED BLOOD COUNT 3.64 MIL/MM3 (4.00-5.30); RED CELL DISTRIBUTION WIDTH 13.8 % (11.6-17.2); WHITE BLOOD COUNT 6.6 TH/MM3 (4.0-11.0)
[2018-02-01 23:46] LABS: BACTERIA, URINE FEW /hpf; RBC, URINE 0-2 /hpf (0-3); SQUAMOUS EPITHELIAL CELL URINE > 8 /hpf (0-5)
[2018-02-01 23:48] LABS: CHLORIDE 109 MEQ/L (98-107); SODIUM (NA) 141 MEQ/L (136-145)
[2018-02-01 23:52] LABS: CALCIUM 8.7 MG/DL (8.5-10.1)
[2018-02-01 23:53] LABS: ALBUMIN 3.7 GM/DL (3.4-5.0); BICARBONATE 25.2 MEQ/L (21.0-32.0); BLOOD UREA NITROGEN 10 MG/DL (7-18); GLUCOSE,RANDOM 85 MG/DL (74-106)
[2018-02-01 23:56] LABS: ALT (GPT) 17 U/L (10-53); AST (GOT) 14 U/L (15-37); CREATININE 0.68 MG/DL (0.50-1.00); GLOMERULAR FILTRATION RATE 96 ML/MIN (>89)
[2018-02-01 23:57] LABS: TOTAL BILIRUBIN ADULT 0.2 MG/DL (0.2-1.0); TOTAL PROTEIN 6.8 GM/DL (6.4-8.2)
--- NOTE | 2018-02-01 23:58 | PD ---
HPI Chief Complaint: Abdominal Pain Time Seen by Provider: 23:11 Travel History International Travel<30 days: No Contact w/Intl Traveler<30days: No Traveled to known affect area: No History of Present Illness HPI This is a 37-year-old female presented the ER for evaluation of abdominal pain. Pain is rated 6 out of 10, sudden onset, started this afternoon, located left lower quadrant, dull, constant, nothing makes it better but movement makes it worse, no nausea vomiting or diarrhea, no UTI like symptoms, no vaginal discharge or bleeding, she had normal bowel movement this morning with no blood or diarrhea. PFSH Past Medical History Hx Anticoagulant Therapy: No Cardiovascular Problems: No Chemotherapy: No Cerebrovascular Accident: No Diabetes: No Diminished Hearing: No Medical other: Yes (GALL STONES) Respiratory: No Immunizations Current: No Tetanus Vaccination: Unknown Influenza Vaccination: Yes ?: Not LMP: ONE WEEK : 2 Para: 1 Miscarriage: 1 : 0 Past Surgical History Hysterectomy: No Social History Alcohol Use: Yes (OCCASIONALLY) Tobacco Use: No Substance Use: No Allergies-Medications (Allergen,Severity, Reaction): Coded Allergies: No Known Allergies (Unverified Adverse Reaction, Unknown, 02/01/18) Reported Meds & Prescriptions Reported Meds & Active Scripts Active Reported Ortho Tri-Cyclen (Norgestimate-Ethinyl Estradiol) 0.18/0.215/0.25 mg-35 Mcg Tab 1 Tab PO DAILY Review of Systems Except as stated in HPI: all other systems reviewed are Neg Physical Exam Narrative GENERAL: Alert oriented 3 no acute distress SKIN: Focused skin assessment warm/dry. HEAD: Atraumatic. Normocephalic. EYES: Pupils equal and round. No scleral icterus. No injection or drainage. ENT: No nasal bleeding or discharge. Mucous membranes pink and moist. NECK: Trachea midline. No JVD. CARDIOVASCULAR: Regular rate and rhythm. No murmur appreciated. RESPIRATORY: No accessory muscle use. Clear to auscultation. Breath sounds equal bilaterally. GASTROINTESTINAL: Abdomen soft, non-tender, nondistended. Hepatic and splenic margins not palpable. MUSCULOSKELETAL: No obvious deformities. No clubbing. No cyanosis. No edema. NEUROLOGICAL: Awake and alert. No obvious cranial nerve deficits. Motor grossly within normal limits. Normal speech. PSYCHIATRIC: Appropriate mood and affect; insight and judgment normal. Data Data Last Documented VS Vital Signs Date Time Temp Pulse Resp B/P (MAP) Pulse Ox O2 Delivery O2 Flow Rate FiO2 02/01/18 23:19 18 02/01/18 22:59 98.3 75 138/59 (85) 99 Orders Orders Comprehensive Metabolic Panel (02/01/18 23:12) Complete Blood Count With Diff (02/01/18 23:12) Urinalysis - C+S If Indicated (02/01/18 23:12) Lipase (02/01/18 23:12) Morphine Inj (Morphine Inj) (02/01/18 23:15) Sodium Chlor 0.9% 1000 Ml Inj (Ns 1000 M (02/01/18 23:15) Urine Culture (02/01/18 23:30) Ct Abd/Pel W Iv Contrast(Rout) (02/02/18 ) Iohexol 350 Inj (Omnipaque 350 Inj) (02/02/18 00:20) Ed Discharge Order (02/02/18 00:42) Labs Laboratory Tests Test 02/01/18 23:30 White Blood Count 6.6 TH/MM3 Red Blood Count 3.64 MIL/MM3 Hemoglobin 9.6 GM/DL Hematocrit 30.3 % Mean Corpuscular Volume 83.2 FL Mean Corpuscular Hemoglobin 26.4 PG Mean Corpuscular Hemoglobin Concent 31.7 % Red Cell Distribution Width 13.8 % Platelet Count 227 TH/MM3 Mean Platelet Volume 8.9 FL Neutrophils (%) (Auto) 40.7 % Lymphocytes (%) (Auto) 40.9 % Monocytes (%) (Auto) 11.7 % Eosinophils (%) (Auto) 5.7 % Basophils (%) (Auto) 1.0 % Neutrophils # (Auto) 2.7 TH/MM3 Lymphocytes # (Auto) 2.6 TH/MM3 Monocytes # (Auto) 0.8 TH/MM3 Eosinophils # (Auto) 0.4 TH/MM3 Basophils # (Auto) 0.1 TH/MM3 CBC Comment DIFF FINAL Differential Comment Urine Color YELLOW Urine Turbidity CLEAR Urine pH 7.0 Urine Specific [place] 1.015 Urine Protein NEG mg/dL Urine Glucose (UA) NEG mg/dL Urine Ketones NEG mg/dL Urine Occult Blood NEG Urine Nitrite NEG Urine Bilirubin NEG Urine Urobilinogen 0.2 MG/DL Urine Leukocyte Esterase MOD Urine RBC 0-2 /hpf Urine WBC 9-14 /hpf Urine Squamous Epithelial Cells > 8 /hpf Urine Bacteria FEW /hpf Microscopic Urinalysis Comment CULTURE INDICATED Blood Urea Nitrogen 10 MG/DL Creatinine 0.68 MG/DL Random Glucose 85 MG/DL Total Protein 6.8 GM/DL Albumin 3.7 GM/DL Calcium Level 8.7 MG/DL Alkaline Phosphatase 41 U/L Aspartate Amino Transf (AST/SGOT) 14 U/L Alanine Aminotransferase (ALT/SGPT) 17 U/L Total Bilirubin 0.2 MG/DL Sodium Level 141 MEQ/L Potassium Level 3.8 MEQ/L Chloride Level 109 MEQ/L Carbon Dioxide Level 25.2 MEQ/L Anion Gap 7 MEQ/L Estimat Glomerular Filtration Rate 96 ML/MIN Lipase 223 U/L MDM Medical Decision Making Medical Screen Exam Complete: Yes Emergency Medical Condition: Yes Differential Diagnosis nephrolithiasis, pyelonephritis, UTI, diverticulitis. Narrative Course 37-year-old female presented the ER for evaluation of abdominal pain. Physical examination is unremarkable, vitals are stable, patient is on acute distress, labs are within normal limits for evidence of UTI in the urine analysis, CAT scan is unremarkable except for cholelithiasis. Patient improved with IV fluids and will be discharged on antibiotics meanwhile if symptoms change or do not improve she will have to come to the ER for further evaluation. Patient understands and agrees to plan of care. Last 24 hours Impressions Abdomen/Pelvis CT 02/02/18 0000 Signed Impressions: CONCLUSION: 1. Gallstones in the gallbladder. No biliary tract obstruction. 2. No acute pathology. Laboratory Tests Test 02/01/18 23:30 White Blood Count 6.6 TH/MM3 Red Blood Count 3.64 MIL/MM3 Hemoglobin 9.6 GM/DL Hematocrit 30.3 % Mean Corpuscular Volume 83.2 FL Mean Corpuscular Hemoglobin 26.4 PG Mean Corpuscular Hemoglobin Concent 31.7 % Red Cell Distribution Width 13.8 % Platelet Count 227 TH/MM3 Mean Platelet Volume 8.9 FL Neutrophils (%) (Auto) 40.7 % Lymphocytes (%) (Auto) 40.9 % Monocytes (%) (Auto) 11.7 % Eosinophils (%) (Auto) 5.7 % Basophils (%) (Auto) 1.0 % Neutrophils # (Auto) 2.7 TH/MM3 Lymphocytes # (Auto) 2.6 TH/MM3 Monocytes # (Auto) 0.8 TH/MM3 Eosinophils # (Auto) 0.4 TH/MM3 Basophils # (Auto) 0.1 TH/MM3 CBC Comment DIFF FINAL Differential Comment Urine Color YELLOW Urine Turbidity CLEAR Urine pH 7.0 Urine Specific [place] 1.015 Urine Protein NEG mg/dL Urine Glucose (UA) NEG mg/dL Urine Ketones NEG mg/dL Urine Occult Blood NEG Urine Nitrite NEG Urine Bilirubin NEG Urine Urobilinogen 0.2 MG/DL Urine Leukocyte Esterase MOD Urine RBC 0-2 /hpf Urine WBC 9-14 /hpf Urine Squamous Epithelial Cells > 8 /hpf Urine Bacteria FEW /hpf Microscopic Urinalysis Comment CULTURE INDICATED Blood Urea Nitrogen 10 MG/DL Creatinine 0.68 MG/DL Random Glucose 85 MG/DL Total Protein 6.8 GM/DL Albumin 3.7 GM/DL Calcium Level 8.7 MG/DL Alkaline Phosphatase 41 U/L Aspartate Amino Transf (AST/SGOT) 14 U/L Alanine Aminotransferase (ALT/SGPT) 17 U/L Total Bilirubin 0.2 MG/DL Sodium Level 141 MEQ/L Potassium Level 3.8 MEQ/L Chloride Level 109 MEQ/L Carbon Dioxide Level 25.2 MEQ/L Anion Gap 7 MEQ/L Estimat Glomerular Filtration Rate 96 ML/MIN Lipase 223 U/L Diagnosis Primary Impression: Cholelithiasis Qualified Codes: K80.80 - Other cholelithiasis without obstruction Additional Impression: UTI (urinary tract infection) Qualified Codes: N39.0 - Urinary tract infection, site not specified Additional Instructions: Follow-up with primary care physician in [place] symptoms change or are not improved. Scripts Cephalexin (Keflex) 500 Mg Cap 500 MG PO Q12H for Infection for 7 Days, #14 CAP 0 Refills Prov: Chadwick Cid MD 02/02/18 Disposition: 01 DISCHARGE HOME Condition: Stable Chadwick Cid MD Feb 01, 2018 23:58
[2018-02-01 23:59] LABS: ALKALINE PHOSPHATASE 41 U/L (45-117)
[2018-02-02] MEDS ORDERED: IOHEXOL 350 MG/ML 10 ML VIAL (for RAD DIAG) IVCONTRAST ONE (00:20)
--- NOTE | 2018-02-02 00:34 | RADRPT ---
EXAM DATE: 02/02/2018 12:19 AM EDT AGE/SEX: 37 years / Female INDICATIONS: Lower abdominal pain. Nausea. CLINICAL DATA: This is the patient's initial encounter. Patient reports that signs and symptoms have been present for 1 day and indicates a pain score of 7/10. MEDICAL/SURGICAL HISTORY: None. None. ORAL CONTRAST: No oral contrast ingested. RADIATION DOSE: 7.54 CTDI (mGy) COMPARISON: [facility] [place] A[place] & PELVIS W CONTRAST, 04/03/2015. . TECHNIQUE: Multiple contiguous axial images were obtained through the abdomen and pelvis following b olus infusion of 100 ml Omnipaque 350 (iohexol) nonionic water-soluble contrast as a single exam do se. No oral contrast ingested. Using automated exposure control and adjustment of the mA and/or kV a ccording to patient size, the radiation dose was kept as low as reasonably achievable to obtain optim al diagnostic quality images. FINDINGS: Lower Lungs: The visualized lower lungs are clear. Liver: The liver has a homogeneous density without space-occupying lesion. There is no dilation of th e biliary tree. Gallstones in the gallbladder. No inflammatory changes. Spleen: Homogeneous density without enlargement. Pancreas: Unremarkable without mass or calcification. Kidneys: Normal in size and shape. No evidence of mass or hydronephrosis. Adrenal Glands: Unremarkable. Aorta: The aorta and proximal iliac vessels are grossly unremarkable without aneurysmal dilation. Bowel/Mesentery: The bowel loops are grossly unremarkable. The cecum and sigmoid colon have a normal configuration. The appendix is unremarkable. No inflammatory changes. There is stool throughout the colon. Abdominal Wall: Intact. Retroperitoneum: No evidence of adenopathy in the retrocrural, para-aortic, or deep pelvic regions. Bladder: Contours are smooth. Reproductive Organs: No abnormal masses or calcifications seen. There appears to be a diaphragm in p lace. Inguinal: The inguinal region is unremarkable without evidence of adenopathy. Bony Structures: Unremarkable. No significant changes compared to the prior study. CONCLUSION: 1. Gallstones in the gallbladder. No biliary tract obstruction. 2. No acute pathology. Electronically signed by: Papi Villeda MD 02/02/2018 12:33 AM EDT
[2018-02-02] MEDS ORDERED: CEPH-460 PO (00:55)
[2018-02-02 01:07] VITALS: BP 9/70
== END 2018-02-02 01:10 | disposition home or self-care (01) ==
LOC: PHED 22:56
DX: K80.20 Calculus of gallbladder without cholecystitis without obstruction (principal); N39.0 Urinary tract infection, site not specified
CPT/HCPCS: 74177; 80053; 81001; 83690; 85025; 87086; 96361; 96374; 99285; J2270; J7030; Q9967